=== PATIENT | male | born 1995 | race Caucasian/White ===

== ENCOUNTER 2023-09-23 19:07 | Emergency (ER) | payer SELFPAY ==
[~2023-09-23] VITALS: Ht 170.2 cm; Wt 70.0 kg
[2023-09-23 19:08] VITALS: O2SAT 99
[2023-09-23] MEDS: DIPHENHYDRAMINE 50MG/ML VIAL IM ONE (19:46)
[2023-09-23] MEDS: HALOPERIDOL LACTATE 5MG/ML VIAL IM ONE (19:46)
[2023-09-23] MEDS: LORAZEPAM 2MG/ML INJ IM ONE (19:47)
[2023-09-23 19:50] VITALS: TEMP 99
[2023-09-23] MEDS: SODIUM CHLORIDE 0.9% 1,000 ML IV ONE (20:16)
[2023-09-23 21:41] LABS: BASOPHILS % 0.7 % (0.0-2.0); EOSINOPHILS % 1.1 % (0.0-5.0); HEMATOCRIT. 32.7 % (42.0-52.0); HEMOGLOBIN. 10.8 g/dL (14.0-18.0); LYMPHOCYTES % 34.1 % (20.0-50.0); MEAN CORPUSCULAR HEMOGLOBIN 25.8 pg (28.0-32.0); MEAN CORPUSCULAR HGB CONC 33.1 g/dL (31.0-37.0); MEAN PLATELET VOLUME 6.2 fl (7.4-10.4); MONOCYTES % 6.5 % (2.0-8.0); NEUTROPHILS % 57.6 % (40.0-76.0); PLATELET 211 x1000/uL (130-400); RED BLOOD CELL COUNT 4.19 mill/uL (4.7-6.1); RED CELL DISTRIBUTION WIDTH 16.9 % (11.6-14.6)
[2023-09-23 21:44] LABS: DIFFERENTIAL COMMENT 1
[2023-09-23 21:47] LABS: CARBON DIOXIDE 22 mEq/L (21-32); CHLORIDE 116 mEq/L (98-107); POTASSIUM 3.4 mEq/L (3.5-5.1); SODIUM 147 mEq/L (136-145)
[2023-09-23 21:48] LABS: CALCIUM 6.9 mg/dL (8.7-10.4)
[2023-09-23 21:52] LABS: CREATININE 0.8 mg/dL (0.6-1.3)
[2023-09-23 21:53] LABS: ETHANOL BLOOD 270 mg/dL (<10); GLUCOSE 90 mg/dL (70-105)
[2023-09-23 21:54] LABS: ALANINE AMINOTRANSFERASE 19 IU/L (10-49)
[2023-09-23 21:55] LABS: ACETAMINOPHEN < 2 ug/mL (10-30); ALBUMIN 3.8 g/dL (3.2-4.8); ASPARTATE AMINOTRANSFERASE 33 IU/L (<34); BILIRUBIN TOTAL 0.3 mg/dL (0.1-1.0); UREA NITROGEN BLOOD < 5 mg/dL (9-23)
[2023-09-24 03:01] VITALS: BP 102/50; PULSE 79; RESP 20
== END 2023-09-24 03:15 | disposition home or self-care (01) ==
LOC: EDBD → ER 19:07
DX: F10.229 Alcohol dependence with intoxication, unspecified (principal); R45.1 Restlessness and agitation; G31.89 Other specified degenerative diseases of nervous system; Y90.8 Blood alcohol level of 240 mg/100 ml or more
CPT/HCPCS: 80053; 80307; 80329; 80320; 85025; 36415; 70450; 93005; 96360; 96372; 99285; J1200; J1630; J2060; J7030; G0480

== ENCOUNTER 2023-09-24 03:44 | Emergency (ER) | payer SELFPAY ==
[~2023-09-24] VITALS: Ht 180.3 cm; Wt 99.0 kg
[2023-09-24 04:19] VITALS: BP 144/90; PULSE 80; RESP 16; TEMP 98.2; O2SAT 98
== END 2023-09-24 06:12 | disposition left against medical advice (07) ==
LOC: ER 04:35
DX: R30.9 Painful micturition, unspecified (principal); Z53.21 Procedure and treatment not carried out due to patient leaving prior to being seen by health care provider